=== PATIENT | male | born 1975 | race Caucasian/White ===

== ENCOUNTER 2018-01-19 23:52 | Emergency (ER) | payer OTHER ==
[2018-01-20 00:43] VITALS: O2SAT 97
[2018-01-20] MEDS ORDERED: Clindamycin in NS 300 MG/50 ML BAG IVPB STA (01:31)
--- NOTE | 2018-01-20 01:59 | ED PDOC ---
Lower Extremity Pain/Injury Time Seen by Provider: 01/20/18 01:10 Chief Complaint (Nursing): Lower Extremity Problem/Injury Chief Complaint (Provider): Left ankle redness and swelling History Per: Patient History/Exam Limitations: no limitations Onset/Duration Of Symptoms: Days (x4) Current Symptoms Are (Timing): Still Present Additional Complaint(s): Remi Tirado is a 42 year old male, with no significant past medical history, who presents to the emergency department for evaluation of left ankle redness and swelling onset for x4 days. Patient states he was seen by PMD and was prescribed Augmentin, he also had the area circled by MD and was advised to come to ED if redness spread. Patient reports pain started yesterday but denies any fever or chills. No further medical complaints. PMD: Jeovany Ochoa Past Medical History Reviewed: Historical Data, Nursing Documentation, Vital Signs Vital Signs: Last Vital Signs Temp 98.9 F 01/20/18 00:40 Pulse 67 01/20/18 00:40 Resp 18 01/20/18 00:40 BP 130/61 01/20/18 00:40 Pulse Ox 97 01/20/18 00:40 - Medical History PMH: No Chronic Diseases - Surgical History Surgical History: No Surg Hx - Family History Family History: States: Unknown Family Hx - Social History Current smoker - smoking cessation education provided: No Alcohol: Social Drugs: Denies - Home Medications Home Medications: Ambulatory Orders Medication Instructions Recorded Clindamycin [Cleocin] 300 mg PO TID 10 Days cap 01/20/18 - Allergies Allergies/Adverse Reactions: Allergies Allergy/AdvReac Type Severity Reaction Status Date / Time No Known Allergies Allergy Verified 01/20/18 01:30 Review of Systems ROS Statement: Except As Marked, All Systems Reviewed And Found Negative Constitutional: Negative for: Fever, Chills Musculoskeletal: Positive for: Foot Pain (left ankle redness and swelling) Physical Exam - Reviewed Nursing Documentation Reviewed: Yes Vital Signs Reviewed: Yes - Physical Exam Appears: Positive for: No Acute Distress Head Exam: Positive for: ATRAUMATIC, NORMAL INSPECTION, NORMOCEPHALIC Skin: Positive for: Normal Color, Warm, Dry Eye Exam: Positive for: Normal appearance, EOMI, PERRL Neck: Positive for: Painless ROM Extremity: Positive for: Normal ROM (upper and lower extremities), Swelling ( swelling and erythema to left ankle lateral portion spread to midfoot and lateral malleolus. No streaking, induration or fluctuance). Negative for: Deformity Neurologic/Psych: Positive for: Alert, Oriented. Negative for: Motor/Sensory Deficits - Laboratory Results Result Diagrams: 01/20/18 01:50 01/20/18 01:50 - ECG O2 Sat by Pulse Oximetry: 97 (RA) Pulse Ox Interpretation: Normal Medical Decision Making Medical Decision Making: Time: 01:10 A/P: 42 y/o male presents with worsening cellulitis. Do not suspect Lyme at this time. Initial Plan: --BMP --CBC w/ differential --Lyme Disease, EIA w/ RFL WB --Clindamycin 300 mg/50 ml-NS 300 mg in 50 ml IVPB --Toradol 30 mg IVP --Blood culture --Ankle left 3 views routine [RAD] --Reevaluation 03:10 -Upon provider reevaluation patient is feeling better, is medically stable, and requires no further treatment in the ED at this time. Patient will be discharged home. Counseling was provided and all questions were answered regarding diagnosis and need for follow up with PMD. There is agreement to discharge plan. Return if symptoms persist or worsen. ----- Scribe Attestation: Documented by Roni Coreas, acting as a scribe for Jesus Hartman MD. Provider Scribe Attestation: All medical record entries made by the Scribe were at my direction and personally dictated by me. I have reviewed the chart and agree that the record accurately reflects my personal performance of the history, physical exam, medical decision making, and the department course for this patient. I have also personally directed, reviewed, and agree with the discharge instructions and disposition. Disposition - Clinical Impression Clinical Impression: Cellulitis - Disposition Referrals: Jeovany Ochoa MD [Medical Doctor] - Disposition: Routine/Home Disposition Time: 03:10 Condition: STABLE Prescriptions: Clindamycin [Cleocin] 300 mg PO TID 10 Days cap Instructions: Cellulitis and Erysipelas (Skin Infections) Forms: [facility] (Setswana)
[2018-01-20 02:08] LABS: BASO # 0.1 K/uL (0.0-0.2); BASO % 0.5 % (0.0-2.0); EOS # 0.2 K/uL (0.0-0.7); EOS % 2.4 % (0.0-4.0); HEMOGLOBIN 13.1 g/dL (12.0-18.0); LYMPH # 2.5 K/uL (1.0-4.3); LYMPH % 25.1 % (20.0-40.0); MEAN CELL VOLUME 85.5 fl (80.0-94.0); MEAN CORPUSCULAR HEMOGLOBIN 28.2 pg (27.0-31.0); MEAN PLATELET VOLUME 8.6 fl (7.2-11.7); MONO # 1.1 K/uL (0.0-0.8); MONO % 11.4 % (0.0-10.0); NEUT % 60.6 % (50.0-75.0); RBC 4.63 Mil/uL (4.40-5.90); RED CELL DISTRIBUTION WIDTH 13.2 % (11.5-14.5); WHITE BLOOD COUNT 9.9 K/uL (4.8-10.8)
[2018-01-20 02:17] LABS: BLOOD UREA NITROGEN 20 mg/dl (9-20); CALCIUM 9.3 mg/dL (8.4-10.2); GFR NON-AFRICAN AMERICAN > 60
[2018-01-20 03:33] VITALS: BP 97/63; PULSE 51; RESP 14; TEMP 98.6
--- NOTE | 2018-01-20 15:43 | RAD ---
Date of service: 01/20/2018 PROCEDURE: Left Ankle Radiographs. HISTORY: ankle swelling, redness COMPARISON: None FINDINGS: BONES: No definitive evidence of acute displaced fracture nor dislocation. Elliptical shaped corticated density within the overlying the lateral ankle mortise of seen on the frontal projection. This may represent old posttraumatic mineralization. JOINTS: Normal. No osteoarthritis. Ankle mortise maintained. Talar dome intact SOFT TISSUES: Mild to moderate lateral soft tissue swelling OTHER FINDINGS: None. IMPRESSION: No definitive evidence of acute displaced fracture nor dislocation. Elliptical shaped corticated density within the overlying the lateral ankle mortise of seen on the frontal projection. This may represent old posttraumatic mineralization. Mild to moderate soft tissue swelling overlying the lateral malleolus
== END 2018-01-20 03:34 | disposition home or self-care (01) ==
LOC: H.ER 23:52
DX: L03.116 Cellulitis of left lower limb (principal)
CPT/HCPCS: 73610; 80048; 85025; 86618; 87040; 96365; 96375; 99285; J1885